=== PATIENT | male | born 1985 | race Caucasian/White ===

== ENCOUNTER 2019-09-23 08:50 | Emergency (ER) | payer OTHER ==
--- NOTE | 2019-09-23 08:54 | ED ---
Complex/Multi-Sys Presentation - HPI Summary HPI Summary: 34 year old M presenting to [facility] with a chief complaint of a fever of 102 degrees on August 27, diarrhea, and nausea since August 30. Patient reports intermittent fevers and sharp epigastric abdominal pain. His last fever was 100 degrees yesterday, and he had a tooth pulled. Patient denies any vomiting, recent travel, exposure to sick contacts, or recent use of antibiotics. Prior to this, otherwise healthy. Medication list reviewed. Allergy list reviewed. - History Of Current Complaint Time Seen by Provider: 09/23/19 08:53 Onset/Duration: Lasting Days, Lasting Weeks, Still Present Timing: Constant Location: Pain At: - Abdomen Character: Sharp Associated Signs And Symptoms: Positive: Nausea, Abdominal Pain, Fever. Negative: Vomiting - Allergies/Home Medications Allergies/Adverse Reactions: Allergies Allergy/AdvReac Type Severity Reaction Status Date / Time No Known Allergies Allergy Verified 09/23/19 09:14 Home Medications: Home Medications Vancomycin CAP* [Vancomycin 125 mg CAP*] 125 mg PO QID 10 Days #40 cap 09/23/19 [Rx] PMH/Surg Hx/FS Hx/Imm Hx Endocrine/Hematology History: Denies: Hx Diabetes Cardiovascular History: Denies: Hx Hypertension - Surgical History Surgical History: None - Family History Known Family History: Positive: Other - Brain aneurysm-father Review of Systems Positive: Fever Positive: Abdominal Pain, Diarrhea, Nausea. Negative: Vomiting All Other Systems Reviewed And Are Negative: Yes Physical Exam - Summary Physical Exam Summary: Constitutional: Well-developed, Well-nourished, Alert. (-) Distressed Skin: Warm, Dry HENT: Normocephalic; Atraumatic Eyes: Conjunctiva normal Neck: Musculoskeletal ROM normal neck. (-) JVD, (-) Stridor, (-) Nuchal rigidity Cardio: Rhythm regular, rate normal, Heart sounds normal; Intact distal pulses; Radial pulses are 2+ and symmetric. (-) Murmur Pulmonary/Chest wall: Effort normal. (-) Respiratory distress, (-) Wheezes, (-) Rales Abd: Soft, (-) tenderness, (-) Distension, (-) Guarding, (-) Rebound Musculoskeletal: (-) Edema Lymph: (-) Cervical adenopathy Neuro: Alert, Oriented x3 Psych: Mood and affect Normal Triage Information Reviewed: Yes Vital Signs Reviewed: Yes Procedures - Sedation Patient Received Moderate/Deep Sedation with Procedure: No Diagnostics - Laboratory Result Diagrams: 09/23/19 09:24 09/23/19 09:24 Lab Statement: Any lab studies that have been ordered have been reviewed, and results considered in the medical decision making process. - CT Abdomen/Pelvis CT CT Interpretation Completed By: Radiologist Summary of CT Findings: Wall thickening of the sigmoid colon with suggestion of focal wall thickening. in the rectum. This may represent underlying colitis. Follow-up exam is suggested. No. abnormal fluid collections are noted. ED physician has reviewed this report. Complex Multi-Symp Course/Dx Course Of Treatment: 34 y/o male w no PMH p/w low grade fevers, diarrhea for several weeks. - VSS NAD. Abd soft. LAbs w normal WBC. Stool cdiff positive. Sent home on oral vancomycin QID 10 days. COVID sent given GI symptoms but CT shows colitis. - Diagnoses Provider Diagnoses: Diarrhea, C. difficile diarrhea Discharge ED - Sign-Out/Discharge Documenting (check all that apply): Patient Departure - Discharge Plan Condition: Stable Disposition: HOME Prescriptions: Vancomycin CAP* [Vancomycin 125 mg CAP*] 125 mg PO QID 10 Days #40 cap Patient Education Materials: C Diff (Clostridium Difficile) Infection (ED) Forms: COVID-19 Tested & Isolation Referrals: No Primary Care Phys,NOPCP [Primary Care Provider] - Additional Instructions: You were seen in the emergency department for diarrhea. Your lab work showed C. difficile infection. Please take the vancomycin 4 times a day for [address] scan showed colitis. Please follow up with your primary care doctor in next 2-3 days and return to emergency department for worsening pain, fevers, or concerning symptoms. It was a pleasure taking care of you today. - Billing Disposition and Condition Condition: STABLE Disposition: Home - Attestation Statements Document Initiated by Scribe: Yes Documenting Scribe: Juanis Hancock Provider For Whom Rosaline is Documenting (Include Credential): Lori Holly MD Scribe Attestation: Juanis Munoz, scribed for Lori Holly MD on 09/23/19 at 1328. Scribe Documentation Reviewed: Yes Provider Attestation: The documentation as recorded by the Juanis washington accurately reflects the service I personally performed and the decisions made by me, Lori Holly MD Status of Scribe Document: Viewed
[2019-09-23 09:42] LABS: ABS Eosinophils 0.5 10^3/ul (0-0.6); ABS Lymphocytes 1.1 10^3/ul (1.0-4.8); ABS Monocytes 0.5 10^3/ul (0-0.8); ABS Neutrophils 8.1 10^3/ul (1.5-7.7); Eosinophil % 5.1 %; Hematocrit 49 % (42-52); Hemoglobin 16.9 g/dL (14.0-18.0); Lymphocyte % 10.6 %; Mean Corpuscular HGB Conc 35 g/dL (31-36); Mean Corpuscular Hemoglobin 31 pg (27-31); Mean Corpuscular Volume 87 fL (80-94); Mean Platelet Volume 8.4 fL (7.4-10.4); Nucleated Red Blood Cells % 0.1; Platelet Count 213 10^3/uL (150-450); Red Blood Count 5.55 10^6 /uL (4.18-5.48); Red Cell Distribution Width 13 % (10-15); White Blood Count 10.3 10^3/uL (3.5-10.8)
[2019-09-23 09:59] LABS: ALT 38 U/L (7-52); AST 25 U/L (13-39); Albumin 4.4 g/dL (3.2-5.2); Albumin/Globulin Ratio 1.3 (1-3); Anion Gap 8 mmol/L (2-11); CO2 Carbon Dioxide 29 mmol/L (22-32); Calcium 9.5 mg/dL (8.6-10.3); Chloride 101 mmol/L (101-111); EGFR African American 102.3 (>60); EGFR Non-African American 84.5 (>60); Globulin 3.3 g/dL (2-4); Glucose 95 mg/dL (70-100); Sodium 138 mmol/L (135-145); Total Protein 7.7 g/dL (6.4-8.9)
[2019-09-23 10:34] LABS: Alkaline Phosphatase 66 U/L (34-104); Blood Urea Nitrogen 11 mg/dL (6-24)
[2019-09-23] MEDS ORDERED: NS 0.9% 1000 ML** 1,000 ML IV ONE (10:56)
[2019-09-23] MEDS ORDERED: Ondansetron INJ* 2 MG/ML VIAL IV ONE (11:03)
[2019-09-23] MEDS ORDERED: Iohexol 300* (CONTRAST) 10 ML SDV IV ONE (12:06)
[2019-09-23 13:25] VITALS: BP 120/76
== END 2019-09-23 13:24 | disposition home or self-care (01) ==
LOC: ED 08:50
DX: A04.72 Enterocolitis due to Clostridium difficile, not specified as recurrent (principal); R50.9 Fever, unspecified; R19.7 Diarrhea, unspecified; Z20.828 Contact with and (suspected) exposure to other viral communicable diseases
CPT/HCPCS: 36415; 74177; 80053; 83690; 85025; 87040; 87045; 87046; 87077; 87493; 87635; 87899; 96361; 96374; 99283; J2405; Q9967